=== PATIENT | female | born 1990 | race Caucasian/White ===

== ENCOUNTER → 2022-08-21 | Outpatient (CLI) | payer OTHER, SELFPAY ==
[2022-08-29 14:55] LABS: HPV APTIMA, High Risk Negative (Negative)
== END | disposition home or self-care (01) ==
LOC: LABSPEC 16:37
PROVIDERS: PCP Family Medicine; Visit Provider Registered Nurse
DX: Z12.4 Encounter for screening for malignant neoplasm of cervix (principal)
CPT/HCPCS: 87624; 88175; G0145

== ENCOUNTER → 2023-02-28 | Outpatient (CLI) | payer OTHER, SELFPAY ==
[2023-02-28 12:00] LABS: Absolute Lymphocyte Count 2.09 X10^3/uL (0.83-4.51); Basophil# 0.03 X10^3/uL; Basophil% 0.2 % (0-1); Eosinophil# 0.27 X10^3/uL; Eosinophils% 2.2 % (0-5); Hematocrit 37.4 % (37-47); Hemoglobin 12.2 g/dL (12.0-15.0); Lymphocyte # 2.09 X10^3/ul (0.83-4.51); Lymphocyte % 17.1 % (19-41); Mean Corp Hgb Conc 32.6 g/dL (32-36); Mean Corpuscular Hgb 27.1 pg (27.0-32.0); Mean Corpuscular Volume 82.9 fL (81-99); Mean Platelet Vol. 10.5 fl (6.2-12.0); Monocyte# 0.75 X10^3/uL; Monocyte% 6.1 % (0-10); NRBC Flagged by Analyzer 0 % (0-5); Neutrophil # 9.01 X10^3/uL (2.7-7.7); Neutrophil % 73.9 % (47-70); Platelet Count 350 K/mm3 (150-450); RBC Distribution Width CV 13.1 % (11.6-14.6); RBC Distribution Width SD 39.4 fl (35.1-43.9); Red Blood Count 4.51 M/mm3 (4.2-5.4); White Blood Count 12.2 K/mm3 (4.4-11.0)
[2023-02-28 13:25] LABS: HIV - WCH Non-Reactive (Nonreactive); Hepatitis B Surface Antigen Non-Reactive (Nonreactive); Hepatitis C Antibody Non-Reactive (Nonreactive); Rubella IgG Reactive (Nonreactive); Syphilis Antibodies Non-reactive
[2023-03-04 07:06] LABS: Chlamydia By Nucleic Acid AMP Negative (Negative); Gonococcus By Nucleic Acid AMP Negative (Negative)
== END | disposition home or self-care (01) ==
PROVIDERS: Obstetrics & Gynecology; PCP Family Medicine; Referring Provider Obstetrics & Gynecology; Visit Provider Obstetrics & Gynecology
DX: O09.90 Supervision of high risk pregnancy, unspecified, unspecified trimester (principal); Z3A.00 Weeks of gestation of pregnancy not specified
CPT/HCPCS: 36415; 84702; 85025; 86703; 86762; 86780; 86803; 86850; 86900; 86901; 87086; 87088; 87340; 87491; 87591

== ENCOUNTER → 2023-03-28 | Outpatient (CLI) | payer OTHER, SELFPAY ==
[2023-03-28 15:12] LABS: Hemoglobin A1c 4.8 % (3.8-5.6)
[2023-03-28 15:48] LABS: NATERA MAILED SPECIMEN
== END | disposition home or self-care (01) ==
PROVIDERS: PCP Family Medicine; Referring Provider Obstetrics & Gynecology; Visit Provider Obstetrics & Gynecology
DX: Z34.81 Encounter for supervision of other normal pregnancy, first trimester (principal); Z3A.00 Weeks of gestation of pregnancy not specified; Z31.430 Encounter of female for testing for genetic disease carrier status for procreative management
CPT/HCPCS: 36415; 83036

== ENCOUNTER → 2023-07-16 | Outpatient (CLI) | payer OTHER, SELFPAY ==
[2023-07-16 16:20] LABS: Absolute Lymphocyte Count 1.64 X10^3/uL (0.83-4.51); Absolute Neutrophil Count 9.7 X10^3/uL (2.0-7.7); Basophil# 0.02 X10^3/uL; Basophil% 0.2 % (0-1); Eosinophil# 0.24 X10^3/uL; Eosinophils% 1.9 % (0-5); Hematocrit 34.4 % (37-47); Hemoglobin 11.2 g/dL (12.0-15.0); Lymphocyte # 1.64 X10^3/ul (0.83-4.51); Lymphocyte % 13.2 % (19-41); Mean Corp Hgb Conc 32.6 g/dL (32-36); Mean Corpuscular Hgb 26.4 pg (27.0-32.0); Mean Corpuscular Volume 81.1 fL (81-99); Monocyte# 0.72 X10^3/uL; Monocyte% 5.8 % (0-10); NRBC Flagged by Analyzer 0 % (0-5); Neutrophil # 9.73 X10^3/uL (2.7-7.7); Neutrophil % 78.4 % (47-70); Platelet Count 265 K/mm3 (150-450); RBC Distribution Width CV 12.8 % (11.6-14.6); RBC Distribution Width SD 37.4 fl (35.1-43.9); Red Blood Count 4.24 M/mm3 (4.2-5.4); White Blood Count 12.4 K/mm3 (4.4-11.0)
[2023-07-16 16:56] LABS: Glucose Challenge Gest 1H 50g 130 mg/dL (70-140)
[2023-07-16 17:11] LABS: HIV - WCH Non-Reactive (Nonreactive); Syphilis Antibodies Non-reactive
== END | disposition home or self-care (01) ==
LOC: LAB 15:15
PROVIDERS: PCP Family Medicine; Referring Provider Advanced Practice Midwife; Visit Provider Advanced Practice Midwife
DX: O09.90 Supervision of high risk pregnancy, unspecified, unspecified trimester (principal); Z3A.00 Weeks of gestation of pregnancy not specified
CPT/HCPCS: 36415; 82950; 85025; 86703; 86780

== ENCOUNTER → 2023-09-09 | Outpatient (CLI) | payer OTHER, SELFPAY | END | disposition home or self-care (01) | PROVIDERS: PCP Family Medicine; Visit Provider Registered Nurse | DX: Z34.90 Encounter for supervision of normal pregnancy, unspecified, unspecified trimester (principal) | CPT/HCPCS: 87081 ==

== ENCOUNTER → 2023-09-25 | Outpatient (CLI) | payer OTHER, SELFPAY ==
--- NOTE | 2023-09-25 18:23 | US_ITS ---
EXAM: US , LIMITED CLINICAL INDICATION: GROWTH TECHNIQUE: Real-time limited ultrasound of the maternal uterus with image documentation. COMPARISON: No relevant prior studies available. FINDINGS: FETUS: Single live intrauterine . GESTATIONAL AGE: Gestational age by ultrasound: 37 weeks 4 days, JEET 10/12/2023. Gestational age by LMP: 38 weeks 2 days, JEET 10/07/2023. EFW: Estimated weight: 3431 g, 62nd percentile. BPD: 8.7 cm, 35 weeks 1 day. HC: 33.2 cm, 37 weeks 6 days. AC: 35.9 cm, 39 weeks 5 days. FL: 7.1 cm, 36 weeks 3 days. POSITION: Cephalic presentation. HEART RATE: heart rate: 137 bpm. PLACENTA: Placenta is anterior. No previa or other abnormality. AMNIOTIC FLUID: FARHAD is normal measuring 12.5 cm. CERVIX: The cervix is not visualized. US/OB Limited With Biometrics IMPRESSION: Single live intrauterine measuring 37 weeks 4 days with no acute abnormality identified. Electronically Signed: Jose Almodovar MD at 8:01 EDT ,
== END | disposition home or self-care (01) ==
PROVIDERS: PCP Family Medicine; Visit Provider Obstetrics & Gynecology
DX: Z34.93 Encounter for supervision of normal pregnancy, unspecified, third trimester (principal); Z3A.37 37 weeks gestation of pregnancy
CPT/HCPCS: 76816

== ENCOUNTER 2023-10-14 19:45 | Inpatient (IN) | payer OTHER, SELFPAY ==
[2023-10-14] VITALS (12 sets, daily range): BP systolic 113–143; BP diastolic 53–87; PULSE 69–91; RESP 14–16; TEMP 36.6; O2SAT 99–100; BMI 40.7
--- NOTE | 2023-10-14 | PLAC_PTH ---
PATIENT: GISEL PARRA LOC: WP U#:[id number] AGE/SX: 33/F ROOM: WP001 RE10/14/[address]: Dr. Irma Taveras MD : 1990 BED: 1 DIS: 10/16/2023 SPEC #: [id number] RECD: 10/15/23 03:02 STATUS: LUZ ALCALA #: [id number] BOB: [birth year]23 00:[address]: Irma Taveras DEPT: SURGICAL PATHOLOGY RECD BY: Rodger March ENTERED: 10/15/23 08:01 SP TYPE: PLACENTA OTHR DR: Dr. Giovanni Don MD Tissues: Placenta, NOS Procedures: Surgery Specimen Level V HEADER OPERATION: section PRE-OP DIAGNOSIS: CAT 2 tracing TISSUE SUBMITTED: Placenta MICROSCOPIC DIAGNOSIS Placenta: Placental disc - third trimester placenta (441 gm). Membranes - acute chorioamnionitis. Umbilical cord - three blood vessels and minimal acute inflammation. SJ: 10/17/2023 MICROSCOPIC DESCRIPTION Slides are reviewed. GROSS DESCRIPTION SPECIMEN: PLACENTA / CLINICAL INFORMATION: A. Weight: 3.54 kg B. Gestational Age: 41 weeks C. Sex: Female PLACENTAL WEIGHT (POST FIXATION): 441 gm PLACENTAL DIMENSIONS: 17.0 x 15.0 x 3.0 cm PLACENTAL SHAPE: Usual ovoid PLACENTAL WEIGHT FOR GESTATIONAL AGE: Within 10-99th percentile MEMBRANES - Present A. Insertion: Marginal B. Site of rupture from edge: at the margin of placental disc C. Color of membrane: Garcia-greenish consistent with meconium staining D. Abnormalities: None UMBILICAL CORD - Present A. Color: Garcia-gunderson B. Insertion: Paracentral C. Length: 40.0 cm D. Diameter: 1.5 cm E. Number of vessels: Three F. Abnormalities: None PLACENTAL DISC - Present A. Color of surface: Garcia-gunderson B. surface abnormalities: None C. Maternal cotyledons: Intact with minimal tears D. Attached retro placental clot: No clot E. Cut surface: Dark red and spongy F. Lesions: None G. Separate clot: Absent SECTIONS SUBMITTED: 1. Membrane roll 2. Cord, maternal end 3. Cord, end 4. Placental disc, and maternal surfaces 5. Placental disc, and maternal surfaces 6. Placental disc, and maternal surfaces /mr 10/16/2023 TC:2 CPT: 99862
--- NOTE | 2023-10-14 18:55 | OB.TRI.PN_ITS ---
Progress Notes Date of Service: 10/14/23 Progress Note: Patient presents for triage evaluation secondary to [ ] FHT: [] Moderate variability reactive no decelerations category I tracing Sand Pillow: [] Contractions Assessment and plan: [] Reactive NST, reassuring maternal and status patient discharged to home to follow-up []. See problem list details for additional plan information. Charges/Coding Procedures Urinary/Genital 52xxx-59xxx: 23491-11 non-stress test Interp
--- NOTE | 2023-10-14 19:20 | HP.PCM.OB_ITS ---
HPI - General General Date of Admission: 10/14/23 HPI Narrative GISEL PARRA, is a 33 F who presents for IOL postdates, upon initial evaluation she had a cat II tracing with minimal variability and intermittent late decels. she denies any vb lof, had good fm today. Maternal Data Information JEET Calculator Estimated Delivery Date Method Current WG Current Estimate 10/07/23 LMP (Certain) 41w 0d PFSH PFSH Medical History (Updated 10/14/23 @ 21:[address] Irma Taveras MD) Asthma Blood clotting disorder Family history of autism Family history of breast cancer Home Medications albuterol sulfate 90 mcg/actuation aerosol inhaler 2 puff inhalation Q6H PRN 02/19/23 [History Last Taken Unknown] prenat.vits,hannah,oal-[id number]-[id number] tab PO 03/28/23 [History Last Taken Unknown] Allergy/AdvReac Type Severity Reaction Status Date / Time Penicillins AdvReac Unknown Unknown Verified 10/08/23 14:36 Family History Aunt Breast cancer maternal Brother Autism Surgical History H/O wisdom tooth extraction Social History adopted: No household members: spouse current occupational status: employed current occupation: [employer] pets and animals: Yes (Not Managing litterbox) pets and animals: cat(s) history of recent travel: Yes ([place]) out of state: Yes out of country: No sexually active: Yes Smoking Status: Never smoker alcohol intake: current alcohol intake frequency: holidays/special occasions only details: Not while substance use type: does not use well-balanced diet: about half the time caffeine: Yes Type: coffee Number of servings: 1 eating out: rarely or never during the past year weight has: remained stable what type of physical activity do you participate in: yoga frequency: 1-2 times per week duration: 15-30 minutes/day janine/orthodox: Denominational seatbelt use: always do you feel safe at home: Yes 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 Plans Covid status: [] Flu vaccine: [] Tdap vaccine: done Rhogam: NA LARC form signed: done Problem list reviewed and updated with the most current plan of care details and appropriate orders placed. Relevant counseling for the gestational age provided. Continue routine care and follow up unless otherwise noted in visit notes/problem list details OB Flowsheet Initial Weight: 223 lb Date -?-?-?-?-?-?-?-?-?-?-?-?- EGA Weight BP Urine Prot -?-?-?-?-?-?-?-?-?-?-?-?- Glucose FHR FuHt Pres Dilation -?-?-?-?-?-?-?-?-?-?-?-?- Effaced St Visit Note 02/28/23 -?-?-?-?-?-?-?-?-?-?-?-?- 8w 3d 223 lb 6 oz (+6 oz) 137/81 -?-?-?-?-?-?-?-?-?-?-?-?- 170 -?-?-?-?-?-?-?-?-?-?-?-?- Sm- CRL 2 cm con s with LMP Sm- CRL 2 cm cons with LMP a dditional area of either pelvic congestion/blood vessels seen in the right side of the uterus. 03/28/23 -?-?-?-?-?-?-?-?-?-?-?-?- 12w 3d 224 lb 4 oz (+1 lb 4 oz) 110/70 -?-?-?-?-?-?-?-?-?-?-?-?- 160 -?-?-?-?-?-?-?-?-?-?-?-?- SM- areas of pel ronn congestion not seen, nl apperance and nl growth, no vb cramping labs reviewed 04/24/23 -?-?-?-?-?-?-?-?-?-?-?-?- 16w 2d 230 lb (+7 lb) 128/64 Negative -?-?-?-?-?-?-?-?-?-?-?-?- Negative 151 -?-?-?-?-?-?-?-?-?-?-?-?- MH-No VB. Nausea improved. Denies concerns 05/20/23 -?-?-?-?-?-?-?-?-?-?-?-?- 20w 0d 239 lb 8 oz (+16 lb 8 oz) 118/72 Negative -?-?-?-?-?-?-?-?-?-?-?-?- Negative 140 -?-?-?-?-?-?-?-?-?-?-?-?- LC- no vb/ctx/lo f. good fm. normal anatomy scan. no concerns. LC- no vb/ctx/lof. good fm. incomplete anatomy scan. no concerns. 06/21/23 -?-?-?-?-?-?-?-?-?-?-?-?- 24w 4d 246 lb 6 oz (+23 lb 6 oz) 122/76 Negative -?-?-?-?-?-?-?-?-?-?-?-?- Negative 144 -?-?-?-?-?-?-?-?-?-?-?-?- LC- no vb/ctx/lo f. good fm. 28 week labs ordered. normal anatomy now completed. 07/16/23 -?-?-?-?-?-?-?-?-?-?-?-?- 28w 1d 246 lb (+23 lb) 123/82 Negative -?-?-?-?-?-?-?-?-?-?-?-?- Negative 140 28 -?-?-?-?-?-?-?-?-?-?-?-?- KW-no vb/lof/ctx . good fm. 28 week labs today. LARC and tdap today. 02/05/24 -?-?-?-?-?-?-?-?-?-?-?-?- 30w 0d 248 lb (+25 lb) 113/74 Trace -?-?-?-?-?-?-?-?-?-?-?-?- Negative 135 30 -?-?-?-?-?-?-?-?-?-?-?-?- kw-no vb/lof/ctx . good fm. 28 week labs normal. 08/14/23 -?-?-?-?-?-?-?-?-?-?-?-?- 32w 2d 251 lb 8 oz (+28 lb 8 oz) 120/74 Negative -?-?-?-?-?-?-?-?-?-?-?-?- Negative 151 32 -?-?-?-?-?-?-?-?-?-?-?-?- MH-No VB, LOF. G ood FM. Declines concerns 08/26/23 -?-?-?-?-?-?-?-?-?-?-?-?- 34w 0d 257 lb (+34 lb) 136/80 131/82 Negative -?-?-?-?-?-?-?-?-?-?-?-?- Negative 130 33 -?-?-?-?-?-?-?-?-?-?-?-?- LC- no vb/ctx/lo f. good fm. doing well. 09/09/23 -?-?-?-?-?-?-?-?-?-?-?-?- 36w 0d 259 lb 2 oz (+36 lb 2 oz) 132/80 -?-?-?-?-?-?-?-?-?-?-?-?- 135 35 -?-?-?-?-?-?-?-?-?-?-?-?- LC- no vb/ctx/lo f. good fm.doing well. 09/20/23 -?-?-?-?-?-?-?-?-?-?-?-?- 37w 4d 260 lb 8 oz (+37 lb 8 oz) 133/79 Negative -?-?-?-?-?-?-?-?-?-?-?-?- Negative 135 36 -?-?-?-?-?-?-?-?-?-?-?-?- SM- no vb lof go od fm no regular ctx 09/23/23 -?-?-?-?-?-?-?-?-?-?-?-?- 38w 0d 258 lb 2 oz (+35 lb 2 oz) 120/72 Negative -?-?-?-?-?-?-?-?-?-?-?-?- Negative 143 36 -?-?-?-?-?-?-?-?-?-?-?-?- -No VB, LOF. G ood FM. Will have growth US this week. Declines pelvic exam 10/01/23 -?-?-?-?-?-?-?-?-?-?-?-?- 39w 1d 263 lb 4 oz (+40 lb 4 oz) 130/77 Negative -?-?-?-?-?-?-?-?-?-?-?-?- Negative 150 37 0 -?-?-?-?-?-?-?-?-?-?-?-?- -3 KW- no v b/lof/ctx. good fm. labor precautions and discussed 41 week IOL 10/08/23 -?-?-?-?-?-?-?-?-?-?-?-?- 40w 1d 260 lb (+37 lb) 115/77 Negative -?-?-?-?-?-?-?-?-?-?-?-?- Negative 155 37 1 -?-?-?-?-?-?-?-?-?-?-?-?- 50 -2 KW- no vb/ lof/reg ctx. good fm. FARHAD by 12 today. IOL set up for 41 weeks. NST FHR Rate Baby A Baseline: 150 Variability:: Minimal Accelerations:: None Decelerations:: Late (intermittent) and Variable (periodic occasional) NST Reactive:: Non-Reactive FHR Category:: Category II Uterine Activity:: q5 ROS Constitutional Constitutional: Reports systems reviewed and no addt'l complaints, except as documented ENT HEENT: Reports systems reviewed and no addt'l complaints, except as documented Cardiovascular Cardiovascular: Reports systems reviewed and no addt'l complaints, except as documented Respiratory/Chest Respiratory/Chest: Reports systems reviewed and no addt'l complaints, except as documented Gastrointestinal Gastrointestinal: Reports systems reviewed and no addt'l complaints, except as documented and nausea; Denies abdominal pain Genitourinary Genitourinary: Reports systems reviewed and no addt'l complaints, except as documented, contractions Details: present and frequency (regular ) and movement Details: present Musculoskeletal Musculoskeletal: Reports systems reviewed and no addt'l complaints, except as documented Integumentary Integumentary: Reports as per HPI Neurologic Neurologic: Reports systems reviewed and no addt'l complaints, except as documented Endocrine Endocrinology: Reports systems reviewed and no addt'l complaints, except as documented Vital Signs Vital Signs Vital Signs: 10/14/23 18:39 10/14/23 18:39 Pulse Rate 90 Blood Pressure 143/84 H BP Systolic 143 BP Diastolic 84 Physical Exam Const alert, oriented x3 and healthy appearing Constitutional Narrative: uncomfortable with contractions HEENT normocephalic and moist oral mucous membranes Head and Scalp: atraumatic Neck full ROM, no lymphadenopathy, supple and thyroid normal General: trachea midline Thyroid: thyroid normal Lymph Lymphatic: no lymphadenopathy noted Chest inspection of chest normal Resp normal respiratory effort Cardio regular rate GI normal to inspection, nondistended, normoactive bowel sounds, soft to palpation and non-tender Inspection: gravid external exam normal Bimanual Exam - Vag & Uterus: uterus non-tender Manual OB Exam: estimated gestational size appropriate, presentation cephalic, dilated, effaced and station Extremity normal to inspection General Extremity: Negative for edema Skin no rashes or lesions noted Neuro deep tendon reflexes 2+ bilaterally Motor Exam: strength 5/5 throughout and clonus absent Psych mental status grossly normal Labs Labs Labs: Blood Type B POSITIVE Antibody Screen NEGATIVE Hct 35.0 % (37-47) L Hgb 11.1 g/dL (12.0-15.0) L Obstetrics Ultrasound Syphilis Total Ab Non-reactive Rubella IgG Antibody Reactive (Nonreactive) Hep Bs Antigen Non-Reactive (Nonreactive) Hepatitis C Antibody Non-Reactive (Nonreactive) Chlamydia DNA (ALECIA) Negative (Negative) N.gonorrhoeae DNA (ALECIA) Negative (Negative) HIV 1&2 Antibody Non-Reactive (Nonreactive) Glucose 1 Hr 50 gm 130 mg/dL (70-140) Assessment & Plan (1) Uterine size-date discrepancy, third trimester: COMMENT: growth US ordered (62%) (2) Supervision of high-risk : QUALIFIERS: Trimester: third trimester Qualified Code(s): O09.93 - Supervision of high risk , unspecified, third trimester COMMENT: PRR , JEET 10/07/23, girl Hillary Nelson, [place] (3) : QUALIFIERS: Weeks of gestation: 40 weeks Qualified Code(s): Z3A.40 - 40 weeks gestation of COMMENT: GBS negative. NIPT low risk, ordered carrier testing, nl anatomy incomplete views of spine (4) Factor V Leiden mutation affecting : COMMENT: heterozygote- no family history of blood clots, sister had complications in her which was the reasoning for testing. no anticoagulation indicated in unless develops risk factors, consider Anticoagulation if csection (5) Asthma: COMMENT: inhaler PRN, seasonal allergies. (6) Category II heart rate tracing during labor and delivery: (7) delivery delivered: COMMENT: [facility] cat II tracing upon admission girl Hillary 41 thick mec PLAN: Plan recommend proceeding with [facility] primary LTCS
[2023-10-14] MEDS: Lactated Ringers 1,000 ML 999 ML IV (20:00)
[2023-10-14 20:06] LABS: Absolute Lymphocyte Count 1.77 X10^3/uL (0.83-4.51); Absolute Neutrophil Count 11.4 X10^3/uL (2.0-7.7); Basophil# 0.02 X10^3/uL; Basophil% 0.1 % (0-1); Eosinophil# 0.11 X10^3/uL; Eosinophils% 0.8 % (0-5); Hemoglobin 11.1 g/dL (12.0-15.0); Lymphocyte # 1.77 X10^3/ul (0.83-4.51); Lymphocyte % 12.4 % (19-41); Mean Corp Hgb Conc 31.7 g/dL (32-36); Mean Corpuscular Volume 75.6 fL (81-99); Mean Platelet Vol. 11.1 fl (6.2-12.0); Monocyte# 0.89 X10^3/uL; Monocyte% 6.2 % (0-10); NRBC Flagged by Analyzer 0 % (0-5); Neutrophil # 11.44 X10^3/uL (2.7-7.7); Neutrophil % 79.9 % (47-70); Platelet Count 290 K/mm3 (150-450); RBC Distribution Width CV 14.1 % (11.6-14.6); RBC Distribution Width SD 37.7 fl (35.1-43.9); Red Blood Count 4.63 M/mm3 (4.2-5.4); White Blood Count 14.3 K/mm3 (4.4-11.0)
[2023-10-14] MEDS: Sodium Citrate/Citric Acid 30 ML UDC PO (20:14)
[2023-10-14] MEDS: Acetaminophen 500 MG Tablet PO (20:14)
[2023-10-14 20:26] LABS: AST(SGOT) 33 U/L (15-37); Alanine Aminotransfer ALT/SGPT 19 U/L (13-56); Creatinine, Serum 0.77 mg/dL (0.55-1.02); EST Glomerular Filtration Rate 93 mL/min (>60); Est Glom Filt Rate - Afr Amer 112 mL/min (>60); Estimated Creatinine Clearance 139.31 ml/min; Uric Acid 4.3 mg/dL (2.6-6.0)
[2023-10-14] MEDS: Gentamicin IV 310 MG in Dextrose 5%-Water (50mL Bag) 50 ML 100 MG IVPB (20:30)
[2023-10-14] MEDS: Clindamycin 900 MG/50 ML BAG 75 MG IV (20:34)
[2023-10-14 20:43] LABS: Syphilis Antibodies Non-reactive
[2023-10-14] MEDS: Oxytocin 15 Units/NS 250ml 15 UNITS/250 ML IV.SOLN 83 UNITS IV (21:30)
--- NOTE | 2023-10-14 21:30 | EX.PCM.OBRPT ---
Assessment & Plan (1) delivery delivered: COMMENT: [facility] cat II tracing upon admission aaron Olson thick mec (2) Category II heart rate tracing during labor and delivery: (3) Uterine size-date discrepancy, third trimester: COMMENT: growth US ordered (62%) (4) Supervision of high-risk : QUALIFIERS: Trimester: third trimester Qualified Code(s): O09.93 - Supervision of high risk , unspecified, third trimester COMMENT: PRR , JEET 10/07/23, girl Hillary Nelson, [place] (5) : QUALIFIERS: Weeks of gestation: 40 weeks Qualified Code(s): Z3A.40 - 40 weeks gestation of COMMENT: GBS negative. NIPT low risk, ordered carrier testing, nl anatomy incomplete views of spine (6) Factor V Leiden mutation affecting : COMMENT: plan 6 week lovenox. heterozygote- no family history of blood clots, sister had complications in her which was the reasoning for testing. no anticoagulation indicated in unless develops risk factors, (7) Asthma: COMMENT: inhaler PRN, seasonal allergies. Maternal Data Information JEET Calculator Estimated Delivery Date Method Current WG Current Estimate 10/07/23 LMP (Certain) 41w 0d Details Operative Information Date of Procedure: 10/14/23 Pre-Operative Diagnosis: see a/p diagnoses Post-Operative Diagnosis: same Indications Narrative: surgeon: Irma Taveras MD Procedure Type: low transverse occupational health professional #2: Blank Acosta Special Medications: none Drain: Beckham to straight drain Estimated Blood Loss: 800 Fluids Replaced: crystalloid Procedure Start Time: 20:39 Procedure Stop Time: 21:08 Findings Description of Procedure: The patient was placed in the dorsal supine position with leftward tilt. Patient was prepped and draped in the normal sterile fashion. Pfannenstiel skin incision was made with the scalpel and carried through to the underlying layer of fascia with the scalpel. Fascia was nicked in the midline and the incision extended laterally. The rectus bellies were dissected off superiorly and inferiorly with out complication both sharply and bluntly. The peritoneum was entered digitally. The incision was stretched and a low transverse uterine incision was made with the scalpel. very, very thick meconium was encountered with minimal fluid overall present. The infant's head was delivered atraumatically followed by the anterior and posterior shoulders without complication the rest of the delivered. The cord was clamped and cut and the was handed off to awaiting nurse. The placenta was delivered spontaneously immediately following and was noted to be intact and have a three-vessel cord. The uterus was exteriorized cleared of all clots and debris, and the incision was closed in a single layer closure using #1 Monocryl. The ovaries and fallopian tubes were noted to be within normal limits. The uterus was returned to the maternal abdomen and gutters were cleared of all clots and debris. The peritoneum was closed with 3-0 Monocryl in a running fashion. Fascia was closed with 0 PDS in a running fashion. Subcutaneous tissue was copiously irrigated and the skin was closed with 3-0 Monocryl in a subcuticular fashion. Mepilex dressing was applied without complication. Patient was taken to recovery in stable condition. It was discussed with the patient that based on the clinical information obtained during this encounter, combined with her history, at this time I would recommend vaginal or cesareans for future deliveries if further pregnancies are desired. Amniotic Fluid Description: Thick meconium Placental Delivery Description: Spontaneous Placenta Disposition: [facility] Cord Vessel Description: 3 Vessels Delayed Cord Clamping: Yes Complications Risks of Surgery Discussed w/Patient: Bleeding, Infection, Need for Future C-Sections and Injury to surrounding structure(s) including bowel and bladder Complications: none Admit VTE Documentation VTE Present on Admission: No VTE Mechan Device Prophylaxis: SCD's Procedures Urinary/Genital 52xxx-59xxx: 52209 Delivery [facility]
--- NOTE | 2023-10-14 21:33 | DCINST_ITS ---
Discharge Instructions Diet Discharge Diet: No restrictions Activity Discharge Activity: May Not Drive (for 2 weeks or while taking narcotic pain medications.), May Shower and May Take a Tub Bath (in 7 days) May shower in (days): 0 May resume sexual activity in: 4-6 weeks Weight Bearing Status: Full weight bearing Lifting Restrictions: 20 pounds Dressing / Incision Call your doctor if your incision/area has: Continuous Slow Oozing, Sudden Increased Bleeding, Increased Pain/ Swelling, Increased Redness and Foul Smelling Discharge Call your doctor if you observe: Fever of 101 or Higher and Using more than 1 pad per hour (for 2 hours) Suture Line Care: Avoid Pulling/Pushing and Avoid Pinching/Bending Cleanse incision/area with: Soap & Water and Keep Dressing Clean & Dry Follow Up Care Please Follow Up With: Irma Taveras MD When: Call [phone] to make an appointment for an incision check in 1-2 weeks. Test Results: Test results from this visit will be discussed in further detail at your follow- up appointment, if applicable. Discharge Plan Admission Admit Date/Time: 10/14/23 20:05 Attending Provider: Irma Taveras Primary Care Provider: Giovanni Don Discharge Orders/Prescriptions Prescriptions: New oxycodone-acetaminophen [Percocet] 5-325 mg tablet 1 tab PO Q6H PRN (Reason: pain) 7 Days Qty: 20 0RF naproxen [naproxen] 500 mg tablet 500 mg PO BID PRN PRN (Reason: Pain) Qty: 30 1RF enoxaparin [Lovenox] 40 mg/0.4 mL syringe 40 mg SQ DAILY 40 Days Qty: 20 1RF No Action albuterol sulfate 90 mcg/actuation HFA aerosol inhaler 2 puff inhalation Q6H PRN prenat.vits,hannah,vrn-popd-sbdnv Tablet PO Referrals / Follow Up: Giovanni Don MD [Primary Care Provider] - Disposition Disposition (needs filled in before D/C Order can be placed): Home, Self Care
[2023-10-14] MEDS: Ketorolac 30 MG/ML Syringe IV (21:59)
[2023-10-15] VITALS (13 sets, daily range): BP systolic 112–127; BP diastolic 61–74; PULSE 63–88; RESP 16–18; TEMP 36.2–36.7; O2SAT 98–100
[2023-10-15] MEDS: Lactated Ringers 1,000 ML 100 ML IV (01:25)
[2023-10-15] MEDS: Acetaminophen 500 MG Tablet 1000 MG PO ×4 (02:53→21:23)
[2023-10-15 03:01] LABS: Pathology Specimen OB SEE PATHOLOGY REPORT
[2023-10-15] MEDS: Ketorolac 30 MG/ML Syringe IV ×3 (03:56→15:13)
[2023-10-15 07:07] LABS: Mean Corpuscular Hgb 24.1 pg (27.0-32.0); Mean Corpuscular Volume 75.1 fL (81-99); Red Blood Count 3.73 M/mm3 (4.2-5.4); White Blood Count 15.3 K/mm3 (4.4-11.0)
[2023-10-15 07:08] LABS: Mean Corp Hgb Conc 32.1 g/dL (32-36); Mean Platelet Vol. 11.1 fl (6.2-12.0); Platelet Count 248 K/mm3 (150-450); RBC Distribution Width SD 37.7 fl (35.1-43.9)
[2023-10-15] MEDS: Senna/Docusate Sodium 1 Tablet PO (09:14)
[2023-10-15] MEDS: Enoxaparin 40 MG/0.4 ML Syringe SC (09:15)
[2023-10-15] MEDS: 0.9% Saline Lock 10 ML Syringe IV ×2 (09:19→15:13)
--- NOTE | 2023-10-15 18:15 | PN.OBGYN_ITS ---
Subjective Subjective Patient doing well without complaints. Tolerating PO. Ambulating and voiding without difficulty. infant feeding well. Denies chest pain, shortness of breath, calf pain/swelling, fevers, chills, lightheadedness. Objective Data Objective Data Vital Signs: Vital Signs Temp Pulse Resp BP Pulse Ox O2 Del Method 97.2 F L 74 18 122/62 H 100 Room Air 10/15/23 12:00 10/15/23 14:00 10/15/23 14:00 10/15/23 14:00 10/15/23 14:00 10/15/23 14:00 Oxygen Delivery Method Room Air Weight: 260 lb Body Mass Index (BMI) 40.7 Intake & Output: Intake and Output for Last 24 Hours 10/13/23 10/14/23 10/15/23 23:59 23:59 23:59 Intake Total 1107.75 / 1107.75 1041.67 / 1041.67 Output Total 2100 / 2100 950 / 950 Balance -992.25 / -992.25 91.67 / 91.67 Lab / Micro Data 10/15/23 05:05 10/14/23 19:50 Labs: Laboratory Results - last 24 hr 10/14/23 19:50: WBC 14.3 H, RBC 4.63, Hgb 11.1 L, Hct 35.0 L, MCV 75.6 L, MCH 24.0 L, MCHC 31.7 L, RDW Std Deviation 37.7, RDW Coeff of Yan 14.1, Plt Count 290, MPV 11.1, Immature Gran % (Auto) 0.600, Neut % (Auto) 79.9 H, Lymph % (Auto) 12.4 L, [place] % (Auto) 6.2, Eos % (Auto) 0.8, Baso % (Auto) 0.1, Absolute Neuts (auto) 11.4 H, Absolute Lymphs (auto) 1.77, Nucleated RBC % 0, Creatinine 0.77, Estim Creat Clear Calc 139.31, Est GFR (MDRD) Af Amer 112, Est GFR (MDRD) Non-Af 93, Uric Acid 4.3, AST 33, ALT 19, Syphilis Total Ab Non-reactive, Blood Type B POSITIVE, Antibody Screen NEGATIVE 10/15/23 05:05: WBC 15.3 H, RBC 3.73 L, Hgb 9.0 L, Hct 28.0 L, MCV 75.1 L, MCH 24.1 L, MCHC 32.1, RDW Std Deviation 37.7, RDW Coeff of Yan 14.0, Plt Count 248, MPV 11.1 ROS Constitutional Constitutional: Reports systems reviewed and no addt'l complaints, except as do cumented Cardiovascular Cardiovascular: Reports systems reviewed and no addt'l complaints, except as documented Respiratory/Chest Respiratory/Chest: Reports systems reviewed and no addt'l complaints, except as documented Gastrointestinal Gastrointestinal: Reports systems reviewed and no addt'l complaints, except as documented Physical Exam Const alert, oriented x3 and no apparent distress HEENT Head and Scalp: atraumatic Resp normal respiratory effort GI soft to palpation and non-tender Inspection: incision intact, healing well and drainage (none) Bimanual Exam - Vag & Uterus: uterus non-tender Uterus Palpation: uterus fundus firm (below Umbilicus) Assessment & Plan (1) delivery delivered: COMMENT: [facility] cat II tracing upon admission girl Hillary 41 thick mec PLAN: Plan s/p LTCS PPD # 1 1. routine post care 2. breast feeding- support given 3. rh positive 4. rubella immune lovenox for 6 weeks
[2023-10-15] MEDS: Naproxen 500 MG Tablet PO (23:42)
[2023-10-16 02:00] VITALS: BP 116/68; PULSE 79; RESP 16; O2SAT 98
[2023-10-16] MEDS: Acetaminophen 500 MG Tablet 1000 MG PO ×2 (03:48→09:45)
[2023-10-16] MEDS: Naproxen 500 MG Tablet PO (07:47)
--- NOTE | 2023-10-16 08:02 | PCM.PN.OB ---
Subjective Subjective Patient doing well without complaints. Tolerating PO. Ambulating and voiding without difficulty. Feeding well. Denies chest pain, shortness of breath, calf pain/swelling, fevers, chills, lightheadedness. Objective Data Objective Data Vital Signs: Vital Signs Temp Pulse Resp BP Pulse Ox O2 Del Method 97.2 F L 79 16 116/68 98 Room Air 10/15/23 12:00 10/16/23 02:00 10/16/23 02:00 10/16/23 02:00 10/16/23 02:00 10/16/23 02:00 Oxygen Delivery Method Room Air Weight: 260 lb Body Mass Index (BMI) 40.7 Intake & Output: Intake and Output for Last 24 Hours 10/14/23 10/15/23 10/16/23 23:59 23:59 23:59 Intake Total 1107.75 / 1107.75 1041.67 / 1041.67 Output Total 2100 / 2100 950 / 950 Balance -992.25 / -992.25 91.67 / 91.67 Lab / Micro Data 10/15/23 05:05 10/14/23 19:50 Physical Exam Const alert and oriented x3 HEENT normocephalic Eyes PERRL Neck full ROM Resp normal respiratory effort GI soft to palpation GI Narrative: FF below U. Dressing dry and intact Palpation: tender other (appropriately) Assessment & Plan (1) delivery delivered: COMMENT: [facility] cat II tracing upon admission girl Hillary 41 thick mec (2) Factor V Leiden mutation affecting : COMMENT: plan 6 week lovenox. heterozygote- no family history of blood clots, sister had complications in her which was the reasoning for testing. no anticoagulation indicated in unless develops risk factors, PLAN: Plan s/p LT PPD # 2 1. routine post care 2. breast feeding- support given 3. rh positive 4. rubella immune 5. Discussed home lovenox, she has done self allergy injections in past 6. home today
[2023-10-16] MEDS: Enoxaparin 40 MG/0.4 ML Syringe SC (09:45)
[2023-10-16] MEDS: Senna/Docusate Sodium 1 Tablet PO (09:45)
== END 2023-10-16 12:35 | disposition home or self-care (01) | DRG 787 ==
LOC: WPOUT 10-15 12:17 → WP 10-15 12:17
PROVIDERS: Admitting Provider Obstetrics & Gynecology; PCP Family Medicine; Referring Provider Obstetrics & Gynecology; Visit Provider Obstetrics & Gynecology
DX: O76 Abnormality in fetal heart rate and rhythm complicating labor and delivery (principal); O99.12 Other diseases of the blood and blood-forming organs and certain disorders involving the immune mechanism complicating childbirth; D68.51 Activated protein C resistance; J45.909 Unspecified asthma, uncomplicated; O99.52 Diseases of the respiratory system complicating childbirth; Z37.0 Single live birth; O77.0 Labor and delivery complicated by meconium in amniotic fluid; Z3A.40 40 weeks gestation of pregnancy
CPT/HCPCS: 59025; 59050; 82565; 84450; 84460; 84550; 85025; 85027; 86780; 86850; 86900; 86901; 88307; 99221; J7120; A4216; G0378; J2405